=== PATIENT | female | born 1990 | race Asian ===

== ENCOUNTER 2018-10-26 17:21 | Inpatient (IN) ==
[2018-10-26 17:58] LABS: Appearance Urine Cloudy (Clear); Bilirubin Urine Negative (Negative); Blood Urine Negative (Negative); Color Urine Yellow; Epithelial Cell Urine Auto >30 /lpf (0-5); Glucose Urine UA Negative (Negative); Ketones Urine Negative (Negative); Leukocyte Esterase Urine 2+ (Negative); Nitrite Urine Negative (Negative); Protein Urine Negative (Negative); Specific Gravity Urine 1.025 (1.000-1.030); Urobilinogen Urine Negative (Negative); WBC Urine Automated >30 /hpf (0-5)
[2018-10-26 17:59] LABS: Basophils # (auto) 0.02 K/uL (0-0.2); Basophils % (auto) 0.3 %; Eosinophils # (auto) 0.18 K/uL (0-0.5); Hematocrit (blood only) 35.5 % (37-47); Hemoglobin 12.6 g/dL (12.0-16.0); Immature Granulocytes # (auto) 0.01 K/uL (0.00-0.02); Immature Granulocytes % (auto) 0.2 %; Lymphocytes # (auto) 1.68 K/uL (1.2-3.4); Mean Corpuscular Hgb Conc 35.5 g/dL (32-36); Mean Corpuscular Volume 89.2 fL (80-100); Mean Platelet Volume 9.3 fL (7.4-10.4); Monocytes # (auto) 0.39 K/uL (0.11-0.59); Monocytes % (auto) 6.5 %; Neutrophils # (auto) 3.73 K/uL (1.4-6.5); Platelet Count 285 K/uL (130-400); RDW Coefficient of Variation 11.8 % (11.5-14.5); RDW Standard Deviation 38.4 fL (36.4-46.3); Red Blood Count 3.98 M/uL (4.2-5.4); White Blood Count 6.01 K/uL (4.8-10.8)
[2018-10-26 18:16] LABS: Bacteria Urine Automated Negative (Negative); Cast Urine Automated 0 /lpf (0-5)
--- NOTE | 2018-10-26 18:29 | Emergency Department Note ---
Entered by Sherron Grey acting as a scribe for History of Present Illness General Chief complaint: Mental Health Evaluation Stated complaint: MHID Time Seen by Provider: 10/26/18 17:26 Source: patient History of Present Illness Onset (ago): unknown (ongoing over last few years) Location: left and right (generalized) Pain Consistency: + intermittent Quality: + other (hearing voices) Associated symptoms: + denies other symptoms The patient is a 27 year old female who presents to the Emergency Room with complaints of intermittently hearing voices that has been ongoing over the last few years. The patient states she hears the voices more when she is alone. She notes the voices have not told her to harm herself or anyone else. She notes the voices told her to cut her hair and maybe they could get out. She states she cut her hair but they have not left. She reports the voices will speak Vietnamese in [place] and [place] in [place]. The patient notes she has been to the [facility] for 1 week previously. Home Medications Home Medications Medication Instructions Recorded Confirmed Type fexofenadine [Liana Allergy] 180 mg PO DAILY PRN 07/06/18 10/26/18 History psyllium husk [Metamucil] 0.4 g PO DAILY PRN 07/13/18 10/26/18 History amoxicillin-pot clavulanate 1 tab PO BID #20 tab 10/17/18 10/26/18 Rx [Augmentin] Allergies Allergy/AdvReac Type Severity Reaction Status Date / Time No Known Allergies Allergy Verified 10/26/18 17:55 Past Med/Surg History Medical History Tonsil stone Surgical History History of colonoscopy Thyroid nodule BENIGN Social History Preferred Language: Bruneian Beliefs That Will Affect Care: None marital status: Single Current Living Situation Comment: 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 and A total of 10 systems reviewed and were otherwise negative Physical Exam Vital Signs Vital Signs - 24 hr 10/26/18 17:40 10/26/18 19:22 10/26/18 22:16 Temperature 36.7 C Temperature Source Oral Sepsis Recent Fever Within 48 Hours No Sepsis Action Taken by Nursing No Action Required Pulse Rate 70 Pulse Rate [Finger] 84 81 Pulse Rhythm Regular Pulse Strength Normal Respiratory Rate 16 12 14 Respiratory Effort / Characteristics Non-Labored Respiratory Depth Normal Respiratory Pattern Regular Blood Pressure 119/65 Blood Pressure [Left Arm] 109/58 L 113/63 Blood Pressure Mean 83 Blood Pressure Mean [Left Arm] 75 79 Blood Pressure Position Sitting Pulse Oximetry 98 100 98 Oxygen Delivery Method Room Air Room Air Room Air CONSTITUTIONAL/VITAL SIGNS: Reviewed / noted above. GENERAL: Non-toxic in appearance. INTEGUMENTARY: Warm, dry, and [place]. HEAD: Normocephalic. EYES: without scleral icterus or trauma. ENT/OROPHARYNX: clear and moist. LYMPHADENOPATHY/NECK: Is supple without lymphadenopathy or meningismus. RESPIRATORY: Lungs clear and equal. CARDIOVASCULAR: Regular rate and rhythm. GI/ABDOMEN: Soft and nontender. No organomegaly or pulsatile mass. No rebound or guarding. Normal bowel sounds. EXTREMITIES: Warm and well perfused. BACK: No CVA tenderness. NEUROLOGICAL: Intact without focal deficits. PSYCHIATRIC: normal affect. MUSCULOSKELETAL: Normally developed with good muscle tone. PSYCH: Normal affect. Course 1733: Past medical records reviewed. The patient was evaluated in room A7, and a complete history and physical examination were performed. 2030: The patient is medically cleared at this time. Awaiting mental health staff to evaluate the patient. 5: The patient has been accepted to [address] [place] [address]. Medical Decision Making Differential Diagnosis differential includes toxic ingestions, self-mutilation, suicidal ideation, suicide attempt, depression. Medical Records Attestation: I reviewed the patient's medical records. Home Medications Current Medication List: was personally reviewed by me Laboratory Data Attestation: I reviewed the patient's lab results. Result diagrams: 10/26/18 17:44 10/26/18 17:44 Lab Results 10/26/18 10/26/18 10/26/18 Range/Units 17:36 17:36 17:44 WBC 6.01 (4.8-10.8) K/uL RBC 3.98 L (4.2-5.4) M/uL Hgb 12.6 (12.0-16.0) g/dL Hct 35.5 L (37-47) % MCV 89.2 (80-100) fL MCH 31.7 (25-34) pg MCHC 35.5 (32-36) g/dL RDW Std Deviation 38.4 (36.4-46.3) fL RDW Coeff of Cedrick 11.8 (11.5-14.5) % Plt Count 285 (130-400) K/uL MPV 9.3 (7.4-10.4) fL Immature Gran % (Auto) 0.2 % Neut % (Auto) 62.0 % Lymph % (Auto) 28.0 % Cottle % (Auto) 6.5 % Eos % (Auto) 3.0 % Baso % (Auto) 0.3 % Immature Gran # (Auto) 0.01 (0.00-0.02) K/uL Neut # (Auto) 3.73 (1.4-6.5) K/uL Lymph # (Auto) 1.68 (1.2-3.4) K/uL Cottle # (Auto) 0.39 (0.11-0.59) K/uL Eos # (Auto) 0.18 (0-0.5) K/uL Baso # (Auto) 0.02 (0-0.2) K/uL Sodium (136-145) mmol/L Potassium (3.5-5.1) mmol/L Chloride (98-107) mmol/L Carbon Dioxide (21-32) mmol/L Anion Gap (3-11) BUN (7-18) mg/dl Creatinine (0.6-1.2) mg/dl Est Cr Clr Drug Dosing ml/min Est GFR ( Amer) Est GFR (Non-Af Amer) BUN/Creatinine Ratio (10-20) Glucose (70-99) mg/dl Calcium (8.5-10.1) mg/dl Total Bilirubin (0.2-1) mg/dl AST (15-37) U/L ALT (12-78) U/L Alkaline Phosphatase (45-117) U/L Total Protein (6.4-8.2) gm/dl Albumin (3.4-5.0) gm/dl Globulin (2.5-4.0) gm/dl Albumin/Globulin Ratio (0.9-2) TSH (0.300-4.500) uIu/ml HCG, Qual (Negative) Urine Color Yellow Urine Appearance Cloudy H (Clear) Urine pH 5.0 (4.5-7.5) Ur Specific Mcwilliams 1.025 (1.000-1.030) Urine Protein Negative (Negative) Urine Glucose (UA) Negative (Negative) Urine Ketones Negative (Negative) Urine Blood Negative (Negative) Urine Nitrite Negative (Negative) Urine Bilirubin Negative (Negative) Urine Urobilinogen Negative (Negative) Ur Leukocyte Esterase 2+ H (Negative) Urine WBC (Auto) >30 H (0-5) /hpf Urine RBC (Auto) 5-10 H (0-4) /hpf U Hyaline Cast (Auto) 0 (0-5) /lpf U Epithel Cells (Auto) >30 H (0-5) /lpf Urine Bacteria (Auto) Negative (Negative) Ur Renal Epithelial Cell Not Reportable Salicylates (2.8-20) mg/dl Urine Opiates Screen Neg (Neg) Ur Methadone, Qual Neg (Neg) Acetaminophen (10-30) ug/ml Urine Barbiturates Neg (Neg) Ur Phencyclidine (PCP) Neg (Neg) U Amphetamin/Meth Scrn Neg (Neg) MDMA (Ecstasy) Screen Neg (Neg) U Benzodiazepines Scrn Neg (Neg) Ur Cocaine Metabolite Neg (Neg) U Marijuana (THC) Screen Neg (Neg) Ethyl Alcohol mg/dL (0-3) mg/dl 10/26/18 10/26/18 10/26/18 Range/Units 17:44 17:44 17:44 WBC (4.8-10.8) K/uL RBC (4.2-5.4) M/uL Hgb (12.0-16.0) g/dL Hct (37-47) % MCV (80-100) fL MCH (25-34) pg MCHC (32-36) g/dL RDW Std Deviation (36.4-46.3) fL RDW Coeff of Cedrick (11.5-14.5) % Plt Count (130-400) K/uL MPV (7.4-10.4) fL Immature Gran % (Auto) % Neut % (Auto) % Lymph % (Auto) % Cottle % (Auto) % Eos % (Auto) % Baso % (Auto) % Immature Gran # (Auto) (0.00-0.02) K/uL Neut # (Auto) (1.4-6.5) K/uL Lymph # (Auto) (1.2-3.4) K/uL Cottle # (Auto) (0.11-0.59) K/uL Eos # (Auto) (0-0.5) K/uL Baso # (Auto) (0-0.2) K/uL Sodium 139 (136-145) mmol/L Potassium 3.7 (3.5-5.1) mmol/L Chloride 108 H (98-107) mmol/L Carbon Dioxide 24 (21-32) mmol/L Anion Gap 7.0 (3-11) BUN 10 (7-18) mg/dl Creatinine 0.60 (0.6-1.2) mg/dl Est Cr Clr Drug Dosing 101.2 ml/min Est GFR ( Amer) 144.8 Est GFR (Non-Af Amer) 124.9 BUN/Creatinine Ratio 15.9 (10-20) Glucose 88 (70-99) mg/dl Calcium 8.7 (8.5-10.1) mg/dl Total Bilirubin 0.6 (0.2-1) mg/dl AST 12 L (15-37) U/L ALT 16 (12-78) U/L Alkaline Phosphatase 39 L (45-117) U/L Total Protein 7.4 (6.4-8.2) gm/dl Albumin 3.9 (3.4-5.0) gm/dl Globulin 3.5 (2.5-4.0) gm/dl Albumin/Globulin Ratio 1.1 (0.9-2) TSH 2.310 (0.300-4.500) uIu/ml HCG, Qual (Negative) Urine Color Urine Appearance (Clear) Urine pH (4.5-7.5) Ur Specific Mcwilliams (1.000-1.030) Urine Protein (Negative) Urine Glucose (UA) (Negative) Urine Ketones (Negative) Urine Blood (Negative) Urine Nitrite (Negative) Urine Bilirubin (Negative) Urine Urobilinogen (Negative) Ur Leukocyte Esterase (Negative) Urine WBC (Auto) (0-5) /hpf Urine RBC (Auto) (0-4) /hpf U Hyaline Cast (Auto) (0-5) /lpf U Epithel Cells (Auto) (0-5) /lpf Urine Bacteria (Auto) (Negative) Ur Renal Epithelial Cell Salicylates < 1.7 L (2.8-20) mg/dl Urine Opiates Screen (Neg) Ur Methadone, Qual (Neg) Acetaminophen < 2 L (10-30) ug/ml Urine Barbiturates (Neg) Ur Phencyclidine (PCP) (Neg) U Amphetamin/Meth Scrn (Neg) MDMA (Ecstasy) Screen (Neg) U Benzodiazepines Scrn (Neg) Ur Cocaine Metabolite (Neg) U Marijuana (THC) Screen (Neg) Ethyl Alcohol mg/dL < 3.0 (0-3) mg/dl 10/26/18 Range/Units 17:44 WBC (4.8-10.8) K/uL RBC (4.2-5.4) M/uL Hgb (12.0-16.0) g/dL Hct (37-47) % MCV (80-100) fL MCH (25-34) pg MCHC (32-36) g/dL RDW Std Deviation (36.4-46.3) fL RDW Coeff of Cedrick (11.5-14.5) % Plt Count (130-400) K/uL MPV (7.4-10.4) fL Immature Gran % (Auto) % Neut % (Auto) % Lymph % (Auto) % Cottle % (Auto) % Eos % (Auto) % Baso % (Auto) % Immature Gran # (Auto) (0.00-0.02) K/uL Neut # (Auto) (1.4-6.5) K/uL Lymph # (Auto) (1.2-3.4) K/uL Cottle # (Auto) (0.11-0.59) K/uL Eos # (Auto) (0-0.5) K/uL Baso # (Auto) (0-0.2) K/uL Sodium (136-145) mmol/L Potassium (3.5-5.1) mmol/L Chloride (98-107) mmol/L Carbon Dioxide (21-32) mmol/L Anion Gap (3-11) BUN (7-18) mg/dl Creatinine (0.6-1.2) mg/dl Est Cr Clr Drug Dosing ml/min Est GFR ( Amer) Est GFR (Non-Af Amer) BUN/Creatinine Ratio (10-20) Glucose (70-99) mg/dl Calcium (8.5-10.1) mg/dl Total Bilirubin (0.2-1) mg/dl AST (15-37) U/L ALT (12-78) U/L Alkaline Phosphatase (45-117) U/L Total Protein (6.4-8.2) gm/dl Albumin (3.4-5.0) gm/dl Globulin (2.5-4.0) gm/dl Albumin/Globulin Ratio (0.9-2) TSH (0.300-4.500) uIu/ml HCG, Qual Negative (Negative) Urine Color Urine Appearance (Clear) Urine pH (4.5-7.5) Ur Specific Mcwilliams (1.000-1.030) Urine Protein (Negative) Urine Glucose (UA) (Negative) Urine Ketones (Negative) Urine Blood (Negative) Urine Nitrite (Negative) Urine Bilirubin (Negative) Urine Urobilinogen (Negative) Ur Leukocyte Esterase (Negative) Urine WBC (Auto) (0-5) /hpf Urine RBC (Auto) (0-4) /hpf U Hyaline Cast (Auto) (0-5) /lpf U Epithel Cells (Auto) (0-5) /lpf Urine Bacteria (Auto) (Negative) Ur Renal Epithelial Cell Salicylates (2.8-20) mg/dl Urine Opiates Screen (Neg) Ur Methadone, Qual (Neg) Acetaminophen (10-30) ug/ml Urine Barbiturates (Neg) Ur Phencyclidine (PCP) (Neg) U Amphetamin/Meth Scrn (Neg) MDMA (Ecstasy) Screen (Neg) U Benzodiazepines Scrn (Neg) Ur Cocaine Metabolite (Neg) U Marijuana (THC) Screen (Neg) Ethyl Alcohol mg/dL (0-3) mg/dl Blood Pressure Blood Pressure Findings: Normal blood pressure Blood Pressure Disposition: did not require urgent referral MDM Narrative This is a 27-year-old female who presents to the ED with a chief complaint of hearing voices. The patient has been hearing voices for some time. She states that the voices have become more prominent recently. She states that she cut her hair very short about 2 weeks ago because the voices told her that if she cut her hair short that the voices would go out of her head. She has been to the [facility] once in August for the same symptoms. She is not currently taking medication. She denies any fevers or recent illness. Denies any trauma. The patient denies that the voices telling her to harm herself or kill herself. Her CBC and metabolic panel were unremarkable. Urine appears to be contaminated but no clear infection. Denies urinary symptoms. HCG was negative. Alcohol was negative. Tylenol and aspirin are negative. The patient is felt to be medically cleared for mental health evaluation/admission. Admitted to . Impression & Plan Auditory hallucination, Depression Discharge Plan Visit Data Chief Complaint: Mental Health Evaluation Stated Complaint: MHID ED Provider: Keith Mott Discharge Problem: Auditory hallucination, Depression Patient Disposition: Transfer Behavioral Health Fac Forms Stand Alone Forms: [facility] Prescriptions Prescriptions: No Action fexofenadine [Liana Allergy] 180 mg Tablet 180 mg PO DAILY PRN (Reason: Congestion) RF: 0 psyllium husk [Metamucil] 0.4 gram Capsule 0.4 g PO DAILY PRN (Reason: Constipation) RF: 0 amoxicillin-pot clavulanate [Augmentin] 875-125 mg tablet 1 tab PO BID Qty: 20 RF: 0 Referrals Referrals: [facility] [Primary Care Provider] - Discharge Problem: Depression Qualifiers: Depression Type: unspecified Qualified Code(s): F32.9 - Major depressive disorder, single episode, unspecified The scribe's documentation has been prepared under my direction and personally reviewed by me in its entirety. I confirm that the note above accurately reflects all work, treatment, procedures, and medical decision making performed by me.
[2018-10-26 18:32] LABS: Amphetamines+Metham, Urine Neg (Neg); Barbiturates, Urine Neg (Neg); Benzodiazepine, Urine Neg (Neg); Cocaine, Urine Neg (Neg); MDMA (Ecstacy), Urine Neg (Neg); Methadone, Urine Neg (Neg); Opiate, Urine Neg (Neg); Phencyclidine, Urine Neg (Neg)
[2018-10-26 18:33] LABS: Albumin Level 3.9 gm/dl (3.4-5.0); BUN Creatinine Ratio 15.9 (10-20); Calcium 8.7 mg/dl (8.5-10.1); Creatinine Clr Calc Pharmacy 101.2 ml/min; Est GFR (African American) 144.8; Est GFR (Non-African American) 124.9; Potassium 3.7 mmol/L (3.5-5.1)
[2018-10-26 18:36] LABS: Acetaminophen < 2 ug/ml (10-30); Salicylate < 1.7 mg/dl (2.8-20)
[2018-10-26 18:44] LABS: Albumin Globulin Ratio 1.1 (0.9-2); Bilirubin,Total 0.6 mg/dl (0.2-1); Globulin 3.5 gm/dl (2.5-4.0); Total Protein 7.4 gm/dl (6.4-8.2)
[2018-10-26 18:47] LABS: Pregnancy Test, Serum Negative (Negative)
[2018-10-26] MEDS ORDERED: ACETAMINOPHEN 325 MG TAB PO PRN (22:52)
[2018-10-26] MEDS ORDERED: BISMUTH SUBSALICYLATE PER ML OMNICELL CHARGE PO PRN (22:52)
[2018-10-26] MEDS ORDERED: MAGNESIUM HYDROXIDE SUSP 30 ML UDC PO PRN (22:52)
[2018-10-26] MEDS ORDERED: ALUMINUM/MAGNESIUM SUSP 30 ML UDC PO PRN (22:52)
[2018-10-26] MEDS ORDERED: SODIUM CHLORIDE 0.65% NA SOLN 45 ML (OCEAN) PRN (22:52)
[2018-10-27] MEDS ORDERED: PSYLLIUM 58.6% POWDER PACKET PO PRN (00:20)
[2018-10-27] MEDS ORDERED: FEXOFENADINE HCL 180 MG TAB PO PRN (00:21)
[2018-10-27] MEDS ORDERED: risperiDONE ODT 0.5 MG SOLTAB PO PRN (00:22)
[2018-10-27] MEDS ORDERED: LORazepam 1 MG TAB PO PRN (00:23)
--- NOTE | 2018-10-27 12:14 | History & Physical ---
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 She is unsure what medication she was tried on recently at the [facility] but nursing indicates that it was Zyprexa. We will restarted 2.5 mg twice daily titrating as tolerated and obtain baseline labs tomorrow morning. These voices appear to have been going on for several years, she has no insight into them and I suspect that this is the beginning of a primary thought disorder such as schizophrenia. Fortunately, she has been able to function and if she is able to remain focused will graduate with her PhD at the end of summer. We will need to explore what local supports she has, refer for psychiatric aftercare. The voice is intermittently command her to do things and she has followed through on at least one command to cut her hair in order to release the voices and I am concerned that if they talk again about suicide that would release them that she could act out on that. There is a backup 302 petitioner statement and a 302 should be considered in the event she wants to department the hospital prematurely. At this time, the patient requires inpatient mental health treatment due to the severity of her condition, inability to manipulate information in a reality based manner, resulting in a high risk for self-harm if discharged. (1) Auditory hallucination: 10/27 - Start Zyprexa 2.5 mg BID R/B/A reviewed and accepted including risk for TD - Monitoring labs (FLP and FBS) tomorrow AM - Reality orientation - Explore support network - Communicate with the university as needed - Coordinate with [facility] - Q 15 min checks for safety Present on Admission?: Yes (2) Sinusitis: 10/27 - Started a 10 day course of Augmentin 4 days ago for "sinus infections. Will continue Chronicity: acute Recurrence: not specified as recurrent Sinusitis location: unspecified location Qualified Code(s): J01.90 - Acute sinusitis, unspecified Present on Admission?: Yes Inventory Assets Strengths: Intelligence, desire to get better Needs: Reality orientation Risk Factors Assessment Male: No : No Do You Have Access To A Gun?: No Health Problems: No Mental Health Diagnoses: Yes Substance Use Disorders: No Previous Attempt: No Family History of Suicide: No Previous Psychiatric Hospitalization: Yes Hopelessness: No Smoker: No Protective Factors Assessment : No Responsible for Young Children: No Employed: No Psychiatric History Identifying Data DELVIS ESCOBAR is a 27-year-old F from [place], 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 She is admitted voluntarily. Information is gathered from the patient and considered to be reliable. 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 She talked with her family About it at the time, they confirmed that they did not hear voices and she was encouraged to see a physician which she did not. She admits that she has been having trouble hearing multiple voices in her head that are usually arguing, shouting "shut up" and using swear words. She first started to hear these voices about 1 year prior to coming to the [facility], believing that it was her neighbors. She then moved to the [facility] to pursue her PhD at [employer] and since arriving has moved 6 times believing that the voices are her neighbors. She was recently hospitalized at the [facility] for voices, took an unknown named medication but did not take it after discharge on October 13 saying that no prescription was ever sent. She was assigned to follow-up at [facility] on campus and saw Danni yesterday to whom she reported that she has had ongoing problems with voices saying that she should cut off her hair and they will get out of her and to days ago saying to each other that if she committed suicide that may be they would be able to get out. She has been talking with her landlord about this who says that she is "spiritually sensitive" and that is why she is hearing voices. She indicates that the voices speaking Wallisian and some limited Belarusian. Some of the voices say they are cat or dog spirits and the only time the improve is when she is sleeping. She says that she hears them 24 hours a day at this point unless she is sleeping. Today she says that her mood is okay and denies suicidal thinking but even during the interview was saying that she is hearing voices saying that she should zain me for the things that I am asking. She indicates her sleep and appetite have been undisturbed. She has anxiety when she hears the voices saying that she feels "overwhelmed" and that they are "too noisy". She denies ever having had visual experiences. She denies self-injurious behaviors. She denies discrete episodes of euphoric mood, sleeplessness or pleasure seeking behaviors that would be congruent with bipolar disorder. Past Psychiatric History Current Psychiatric Diagnosis: Unknown Outpatient Services: cristopher BER[facility] Danni yesterday Previous Psych Admissions: The [facility] Do You Have Access To A Gun?: No History of Previous Suicide Attempt: No Past Medication Trials: ? Zyprexa while at the [facility] Past Head Trauma/Neuro History History of Concussion/Seizure: No Allergies Allergy/AdvReac Type Severity Reaction Status Date / Time No Known Allergies Allergy Verified 10/26/18 17:55 Home Medications Home Medications Medication Instructions Recorded Confirmed Type fexofenadine [Liana Allergy] 180 mg PO DAILY PRN 07/06/18 10/26/18 History psyllium husk [Metamucil] 0.4 g PO DAILY PRN 07/13/18 10/26/18 History amoxicillin-pot clavulanate 1 tab PO BID #20 tab 10/17/18 10/26/18 Rx [Augmentin] Family History Family History of: None Alcohol History Hx of Alcohol Use Over the Past 12 Months: No AUDIT Total Score: 0 Smoking Use Have You Smoked or Used Tobacco Products in the Last 30 Days: No Smoking Status: Never smoker Substance History Hx of Prescription Med Misuse Over the Past 12 Months: No Hx of Over the Counter Med Misuse Over the Past 12 Months: No Hx of Inhalent Misuse Over the Past 12 Months: No Hx of Organic Substance Use Over the Past 12 Months: No Hx of Illegal Substances/Street Drug Use Over Past 12 Months: No Problems as a Result of Past Substance Use: None Identified Personal History Living Arrangements: [employer] Grade Completed Comment: 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 the end 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 Employment Status: Student Marital Status: Single Number Of Children: None Beliefs That Will Affect Care: None Current Legal Problems: No Hx Legal Problems: No Hx Traumatic Life Events: No Patient History Medical History Tonsil stone Surgical History History of colonoscopy Thyroid nodule BENIGN Social History Preferred Language: Wallisian Communication Ability: Effective 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 Mott in the ED has been reviewed and accepted as medical clearance for our unit. Psychiatric Orientation: alert, oriented x 3 and cooperative Apperance: appropriately dressed and appropriately groomed (Recently shaved head) Eye Contact: good eye contact Motor Behavior: steady gait and station and no abnormal motor movements Speech: normal rate/rhythm/volume of speech (quiet with heavy accent) Affect: + anxious affect Mood: + anxious mood; no depressed mood Thought Process: goal directed thought process Thought Content: + preoccupation (with auditory hallucinations) Suicidal Thoughts: denies suicidal thoughts Homicidal Thoughts: denies homicidal thoughts Hallucinations: + auditory hallucinations; no visual hallucinations Cognition: recent memory grossly intact, remote memory grossly intact, attention grossly intact and language grossly intact Estimated Intelligence: average estimated intelligence Insight: + impaired insight Judgement: + impaired judgement Vital Signs (Past 24 Hours) Last Vital Signs Temp 36.6 C 10/27/18 06:49 Pulse 82 10/27/18 06:50 Resp 16 10/27/18 06:49 BP 107/73 10/27/18 06:50 Pulse Ox 100 10/26/18 23:05 Results & Data Laboratory Results Laboratory Results - last 24 hr 10/26/18 10/26/18 10/26/18 17:36 17:36 17:44 WBC 6.01 RBC 3.98 L Hgb 12.6 Hct 35.5 L MCV 89.2 MCH 31.7 MCHC 35.5 RDW Std Deviation 38.4 RDW Coeff of Cedrick 11.8 Plt Count 285 MPV 9.3 Immature Gran % (Auto) 0.2 Neut % (Auto) 62.0 Lymph % (Auto) 28.0 Allen % (Auto) 6.5 Eos % (Auto) 3.0 Baso % (Auto) 0.3 Immature Gran # (Auto) 0.01 Neut # (Auto) 3.73 Lymph # (Auto) 1.68 Allen # (Auto) 0.39 Eos # (Auto) 0.18 Baso # (Auto) 0.02 Sodium Potassium Chloride Carbon Dioxide Anion Gap BUN Creatinine Est Cr Clr Drug Dosing Est GFR ( Amer) Est GFR (Non-Af Amer) BUN/Creatinine Ratio Glucose Calcium Total Bilirubin AST ALT Alkaline Phosphatase Total Protein Albumin Globulin Albumin/Globulin Ratio TSH HCG, Qual Urine Color Yellow Urine Appearance Cloudy H Urine pH 5.0 Ur Specific Slovan 1.025 Urine Protein Negative Urine Glucose (UA) Negative Urine Ketones Negative Urine Blood Negative Urine Nitrite Negative Urine Bilirubin Negative Urine Urobilinogen Negative Ur Leukocyte Esterase 2+ H Urine WBC (Auto) >30 H Urine RBC (Auto) 5-10 H U Hyaline Cast (Auto) 0 U Epithel Cells (Auto) >30 H Urine Bacteria (Auto) Negative Ur Renal Epithelial Cell Not Reportable Salicylates Urine Opiates Screen Neg Ur Methadone, Qual Neg Acetaminophen Urine Barbiturates Neg Ur Phencyclidine (PCP) Neg U Amphetamin/Meth Scrn Neg MDMA (Ecstasy) Screen Neg U Benzodiazepines Scrn Neg Ur Cocaine Metabolite Neg U Marijuana (THC) Screen Neg Ethyl Alcohol mg/dL 10/26/18 10/26/18 10/26/18 17:44 17:44 17:44 WBC RBC Hgb Hct MCV MCH MCHC RDW Std Deviation RDW Coeff of Cedrick Plt Count MPV Immature Gran % (Auto) Neut % (Auto) Lymph % (Auto) Allen % (Auto) Eos % (Auto) Baso % (Auto) Immature Gran # (Auto) Neut # (Auto) Lymph # (Auto) Allen # (Auto) Eos # (Auto) Baso # (Auto) Sodium 139 Potassium 3.7 Chloride 108 H Carbon Dioxide 24 Anion Gap 7.0 BUN 10 Creatinine 0.60 Est Cr Clr Drug Dosing 101.2 Est GFR ( Amer) 144.8 Est GFR (Non-Af Amer) 124.9 BUN/Creatinine Ratio 15.9 Glucose 88 Calcium 8.7 Total Bilirubin 0.6 AST 12 L ALT 16 Alkaline Phosphatase 39 L Total Protein 7.4 Albumin 3.9 Globulin 3.5 Albumin/Globulin Ratio 1.1 TSH 2.310 HCG, Qual Urine Color Urine Appearance Urine pH Ur Specific Slovan Urine Protein Urine Glucose (UA) Urine Ketones Urine Blood Urine Nitrite Urine Bilirubin Urine Urobilinogen Ur Leukocyte Esterase Urine WBC (Auto) Urine RBC (Auto) U Hyaline Cast (Auto) U Epithel Cells (Auto) Urine Bacteria (Auto) Ur Renal Epithelial Cell Salicylates < 1.7 L Urine Opiates Screen Ur Methadone, Qual Acetaminophen < 2 L Urine Barbiturates Ur Phencyclidine (PCP) U Amphetamin/Meth Scrn MDMA (Ecstasy) Screen U Benzodiazepines Scrn Ur Cocaine Metabolite U Marijuana (THC) Screen Ethyl Alcohol mg/dL < 3.0 10/26/18 17:44 WBC RBC Hgb Hct MCV MCH MCHC RDW Std Deviation RDW Coeff of Cedrick Plt Count MPV Immature Gran % (Auto) Neut % (Auto) Lymph % (Auto) Allen % (Auto) Eos % (Auto) Baso % (Auto) Immature Gran # (Auto) Neut # (Auto) Lymph # (Auto) Allen # (Auto) Eos # (Auto) Baso # (Auto) Sodium Potassium Chloride Carbon Dioxide Anion Gap BUN Creatinine Est Cr Clr Drug Dosing Est GFR ( Amer) Est GFR (Non-Af Amer) BUN/Creatinine Ratio Glucose Calcium Total Bilirubin AST ALT Alkaline Phosphatase Total Protein Albumin Globulin Albumin/Globulin Ratio TSH HCG, Qual Negative Urine Color Urine Appearance Urine pH Ur Specific Slovan Urine Protein Urine Glucose (UA) Urine Ketones Urine Blood Urine Nitrite Urine Bilirubin Urine Urobilinogen Ur Leukocyte Esterase Urine WBC (Auto) Urine RBC (Auto) U Hyaline Cast (Auto) U Epithel Cells (Auto) Urine Bacteria (Auto) Ur Renal Epithelial Cell Salicylates Urine Opiates Screen Ur Methadone, Qual Acetaminophen Urine Barbiturates Ur Phencyclidine (PCP) U Amphetamin/Meth Scrn MDMA (Ecstasy) Screen U Benzodiazepines Scrn Ur Cocaine Metabolite U Marijuana (THC) Screen Ethyl Alcohol mg/dL Current Inpatient Medications Current Inpatient Medications: Current Inpatient Medications Acetaminophen (Tylenol) 650 mg PO Q4H PRN PRN Reason: Headache or Minor Fever Stop: 11/25/18 22:51 Al Hydrox/Mg Hydrox/Simethicone (Maalox) 30 ml PO Q4H PRN PRN Reason: GI Upset Stop: 11/25/18 22:51 Bismuth Subsalicylate (Kaopectate) 15 ml PO PRN PRN PRN Reason: Loose Stool Stop: 11/25/18 22:51 Fexofenadine HCl (Liana) 180 mg PO QAM PRN PRN Reason: Congestion Stop: 11/26/18 08:59 Hydroxyzine HCl (Vistaril) 25 mg PO Q4H PRN PRN Reason: Anxiety Stop: 11/25/18 22:51 Hydroxyzine HCl (Vistaril) 50 mg PO HSZ PRN PRN Reason: Insomnia Stop: 11/25/18 22:51 Lorazepam (Ativan) 1 mg PO TID PRN PRN Reason: Anxiety Stop: 11/26/18 00:22 Magnesium Hydroxide (Milk Of Magnesia) 30 ml PO DAILY PRN PRN Reason: Heartburn Stop: 11/25/18 22:51 Psyllium Hydrophilic Mucilloid (Metamucil) 1 pkt PO QAM PRN PRN Reason: Constipation Stop: 11/26/18 08:59 Risperidone (Risperdal M) 0.5 mg PO TID PRN PRN Reason: psychosis Stop: 11/26/18 00:21 Sodium Chloride ([place] Nasal) 1 - 2 sprays NA PRN PRN PRN Reason: Nasal Dryness/Congestion Stop: 11/25/18 22:51 CPT Code CPT Code Initial Hospital Care: [id number]
[2018-10-27] MEDS: OLANZAPINE 2.5 MG TAB PO SCH ×2 (12:47→21:10)
[2018-10-27] MEDS: NON-FORMULARY PATIENT'S OWN MED SCH (18:17)
[2018-10-28 07:46] LABS: Glucose Fasting 91 mg/dl (70-99)
[2018-10-28 07:53] LABS: Chol HDL Ratio 2; Cholesterol 154 mg/dl (0-200); HDL Cholesterol 66 mg/dl; LDL Cholesterol Calculated 80 mg/dl; Triglycerides 40 mg/dl (0-150); VLDL Cholesterol 8 mg/dl
[2018-10-28] MEDS: OLANZAPINE 2.5 MG TAB PO SCH ×2 (09:15→21:08)
[2018-10-28] MEDS: NON-FORMULARY PATIENT'S OWN MED SCH ×2 (09:16→17:32)
--- NOTE | 2018-10-28 10:55 | Psychiatric Progress Note ---
Date of Service October 28, 2018 Impression / Recommendations Impression Adjusting to the structure and support of the milieu. Continues with auditory hallucinations of multiple voices arguing, but are more distant and less intense. Is sedated on the meds and so will not increase and will consider moving all to HS if persists. Will switch prn to Zyprexa for monotherapy. Patient agreeable to having a meeting with her roommates. (1) Auditory hallucination: 10/27 - Start Zyprexa 2.5 mg BID R/B/A reviewed and accepted including risk for TD - Monitoring labs (FLP and FBS) tomorrow AM - Reality orientation - Explore support network - Communicate with the university as needed - Coordinate with [facility] - Q 15 min checks for safety 10/28 - Continue current dose of zyprexa - Change prn to zyprexa 2.5 TID prn psychosis - Meeting with roommates when patient able to tolerate Present on Admission?: Yes (2) Sinusitis: 10/27 - Started a 10 day course of Augmentin 4 days ago for "sinus infections. Will continue Present on Admission?: Yes Inventory Assets Strengths: Intelligence, desire to get better Needs: Reality orientation Risk Factors Assessment Male: No : No Do You Have Access To A Gun?: No Health Problems: No Mental Health Diagnoses: Yes Substance Use Disorders: No Previous Attempt: No Family History of Suicide: No Previous Psychiatric Hospitalization: Yes Hopelessness: No Smoker: No Protective Factors Assessment : No Responsible for Young Children: No Employed: No Interval History Identifying Information 27 yo grad student, admitted voluntarily with auditory hallucinations interfering with her ability to function. Chief Complaint "A little farther away.". Review of Systems Sleep Information Total Hours of Sleep: 11 Sleep Comments: pt appeared to sleep 4 hrs during evening shift. pt on q-15 minute checks Meal Information Percent Meal Consumed - Breakfast: 100 Percent Meal Consumed - Lunch: 100 Subjective Subjective Patient was seen & assessed and interval progress reviewed with Treatment Team. The patient is tired today and wants to rest. She says that she still hears the voices but that they are "father away" and "less". She denies any concerns for her safety and says that she is not having visual hallucinations. She denies side effects to meds other than feeling tired. Nursing reports that she took one prn dose of risperdal yesterday because the voices were bad and took both scheduled doses of zyprexa. She is otherwise not very talkative today and is nonspontaneous in conversation. Physical Exam Psychiatric Orientation: cooperative Apperance: appropriately dressed Eye Contact: good eye contact Motor Behavior: steady gait and station and no abnormal motor movements Very quiet and difficult to understand today. Nonspontaneous Affect: + flat affect Mood: no depressed mood and no anxious mood Thought Process: goal directed thought process Thought Content: + preoccupation (with auditory hallucinations) Suicidal Thoughts: denies suicidal thoughts Homicidal Thoughts: denies homicidal thoughts Hallucinations: + auditory hallucinations; no visual hallucinations Cognition: recent memory grossly intact, remote memory grossly intact, attention grossly intact and language grossly intact (heavy accent) Insight: + impaired insight Judgement: + impaired judgement Vital Signs (Past 24 Hours) Last Vital Signs Temp 36.6 C 10/28/18 06:46 Pulse 78 10/28/18 06:46 Resp 16 10/28/18 06:46 BP 114/74 10/28/18 06:46 Pulse Ox 100 10/26/18 23:05 Results & Data Laboratory Results Laboratory Results - last 24 hr 10/28/18 07:00 Fasting Glucose 91 Triglycerides 40 Cholesterol 154 LDL Cholesterol, Calc 80 VLDL Cholesterol, Calc 8 HDL Cholesterol 66 Cholesterol/HDL Ratio 2 Current Inpatient Medications Current Inpatient Medications: Current Inpatient Medications Acetaminophen (Tylenol) 650 mg PO Q4H PRN PRN Reason: Headache or Minor Fever Stop: 11/25/18 22:51 Al Hydrox/Mg Hydrox/Simethicone (Maalox) 30 ml PO Q4H PRN PRN Reason: GI Upset Stop: 11/25/18 22:51 Bismuth Subsalicylate (Kaopectate) 15 ml PO PRN PRN PRN Reason: Loose Stool Stop: 11/25/18 22:51 Fexofenadine HCl (Liana) 180 mg PO QAM PRN PRN Reason: Congestion Stop: 11/26/18 08:59 Hydroxyzine HCl (Vistaril) 25 mg PO Q4H PRN PRN Reason: Anxiety Stop: 11/25/18 22:51 Hydroxyzine HCl (Vistaril) 50 mg PO HSZ PRN PRN Reason: Insomnia Stop: 11/25/18 22:51 Lorazepam (Ativan) 1 mg PO TID PRN PRN Reason: Anxiety Stop: 11/26/18 00:22 Magnesium Hydroxide (Milk Of Magnesia) 30 ml PO DAILY PRN PRN Reason: Heartburn Stop: 11/25/18 22:51 Non-Formulary Medication (Non-Formulary Patient's Own Med) 1 ea N/A BIDM MAEVE Stop: 11/04/18 17:44 Last Admin: 10/28/18 09:16 Dose: 1 ea Documented by: Olanzapine (Zyprexa) 2.5 mg PO BID MAEVE Stop: 11/26/18 12:29 Last Admin: 10/28/18 09:15 Dose: 2.5 mg Documented by: Psyllium Hydrophilic Mucilloid (Metamucil) 1 pkt PO QAM PRN PRN Reason: Constipation Stop: 11/26/18 08:59 Risperidone (Risperdal M) 0.5 mg PO TID PRN PRN Reason: psychosis Stop: 11/26/18 00:21 Last Admin: 10/27/18 21:26 Dose: 0.5 mg Documented by: Sodium Chloride ([place] Nasal) 1 - 2 sprays NA PRN PRN PRN Reason: Nasal Dryness/Congestion Stop: 11/25/18 22:51 Post Discharge Appointments [facility] Name of Therapist: Danni berger [facility] (just there yesterday) Material Expeditor Name of Material Expeditor: Denies CPT Code CPT Code 13425 (1) Sinusitis Chronicity: acute Recurrence: not specified as recurrent Sinusitis location: unspecified location Qualified Code(s): J01.90 - Acute sinusitis, unspecified
[2018-10-28] MEDS ORDERED: OLANZAPINE 2.5 MG TAB PO PRN (10:56)
[2018-10-28] MEDS ORDERED: IBUPROFEN 600 MG TAB PO PRN (13:30)
--- NOTE | 2018-10-29 09:12 | Psychiatric Progress Note ---
Date of Service October 29, 2018 Impression / Recommendations Impression Continues with auditory hallucinations of multiple voices arguing, but are more distant and less intense. Is getting 5 mg of olanzapine total daily in divided doses. Unclear if sleepiness is due to starting her period yesterday (states she typically retreats to bed for a couple of days at the beginning of her cycle), or to sedation from medication, but could continue consolidating olanzapine to bedtime if it continues. She has not yet been able to participate in therapy or groups, and encouraged her to come out of her room and engage more. Inpatient treatment remains medically necessary due to the severity of her symptoms and inability to function outside of the hospital. (1) Auditory hallucination: 10/27 - Start Zyprexa 2.5 mg BID R/B/A reviewed and accepted including risk for TD - Monitoring labs (FLP and FBS) tomorrow AM - Reality orientation - Explore support network - Communicate with the university as needed - Coordinate with CAPS - Q 15 min checks for safety 10/28 - Continue current dose of zyprexa - Change prn to zyprexa 2.5 TID prn psychosis - Meeting with roommates when patient able to tolerate 10/29 -Getting olanzapine 2.5 mg x2 doses a day. Consider consolidating to bedtime if continues to be sleepy during the day. -Encourage group attendance and participation. (2) Sinusitis: 10/27 - Started a 10 day course of Augmentin 4 days ago for sinus infection. 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 Chief Complaint "I got my period." Review of Systems Sleep Information Total Hours of Sleep: 8.25 Sleep Comments: pt appeared to sleep 1/75 hrs during evening shift. pt on q-15 minute checks Meal Information Percent Meal Consumed - Breakfast: 100 Percent Meal Consumed - Lunch: 0 Percent Meal Consumed - Dinner: 100 Nutrition Comment: Patient threw-up earlier in the shift and declined her lunch. Subjective Subjective Patient was seen & assessed and interval progress reviewed with Nursing and social work. Staff reports she has attended minimal groups since admission, often retreating to her bed and sleeping throughout the day. She continues to endorse auditory hallucinations of voices making negative comments. She had an episode of emesis yesterday, and did not attend any groups. She has received he r scheduled olanzapine 2.5 mg daily, as well as an additional daily as needed dose. On my assessment today, the patient was seen in her room, where she was resting in bed. She states that she has been in bed the past 24 hours because she just got her period yesterday, which causes cramping, fatigue, and at times vomiting. She typically retreats to bed for a couple of days every month when she gets her period, but hopes she will feel better by this afternoon and will be able to get up. She does not typically take anything for the cramps, and declines offers for ibuprofen or Tylenol. She has been able to eat and denies any further episodes of nausea or vomiting. She slept well overnight, but continues to feel tired and would like to sleep a bit more. Mood is "I feel calm," and she reports ongoing auditory hallucinations of voices. They are quieter than they were when she first came to the hospital, and are no longer commanding her to do things, but are arguing with each other. Although she says the voices make her feel "annoyed," she gets worried when they stopped and she does not hear them at all, saying she feels "unsafe, I don't know, kind of feel unreal, like I don't know what is happening." She does think the medication is helping, and thinks that she would be able to function better if the voices would go away. She feels safe here and denies thoughts of harming herself or anyone else. She wants to know how long she will be in the hospital, and was encouraged to start coming out of her room and engaging in treatment so that we can have a better sense of how she is doing and her ability to function. Physical Exam Mental Examination Thin female appearing younger than her stated age. Head is shaved in a buzz cut. Lying in bed resting, but easily aroused to voice. Speech is soft, minimal, has to be asked to repeat statements at times as she is so quiet. Limited eye contact and no abnormal movements. Mood is "I feel calm," and affect is restricted to sleepy. Thoughts are goal-directed, although at times difficult to understand, but able to clarify when asked. Denies SI and HI, but reports ongoing auditory hallucinations of voices arguing with one another, as well as paranoia and a feeling unsafe when the voices are quiet. Alert to self and situation, but not to time. Insight and judgment are impaired. Vital Signs (Past 24 Hours) Last Vital Signs Temp 36.6 C 10/29/18 06:42 Pulse 101 H 10/29/18 06:42 Resp 16 10/29/18 06:42 BP 104/70 10/29/18 06:42 Pulse Ox 100 10/26/18 23:05 Results & Data Current Inpatient Medications Current Inpatient Medications: Current Inpatient Medications Acetaminophen (Tylenol) 650 mg PO Q4H PRN PRN Reason: Headache or Minor Fever Stop: 11/25/18 22:51 Al Hydrox/Mg Hydrox/Simethicone (Maalox) 30 ml PO Q4H PRN PRN Reason: GI Upset Stop: 11/25/18 22:51 Bismuth Subsalicylate (Kaopectate) 15 ml PO PRN PRN PRN Reason: Loose Stool Stop: 11/25/18 22:51 Fexofenadine HCl (Liana) 180 mg PO QAM PRN PRN Reason: Congestion Stop: 11/26/18 08:59 Hydroxyzine HCl (Vistaril) 25 mg PO Q4H PRN PRN Reason: Anxiety Stop: 11/25/18 22:51 Hydroxyzine HCl (Vistaril) 50 mg PO HSZ PRN PRN Reason: Insomnia Stop: 11/25/18 22:51 Ibuprofen (Motrin) 600 mg PO Q6H PRN PRN Reason: pain, cramps Stop: 11/27/18 13:29 Lorazepam (Ativan) 1 mg PO TID PRN PRN Reason: Anxiety Stop: 11/26/18 00:22 Magnesium Hydroxide (Milk Of Magnesia) 30 ml PO DAILY PRN PRN Reason: Heartburn Stop: 11/25/18 22:51 Non-Formulary Medication (Non-Formulary Patient's Own Med) 1 ea N/A BIDM MAEVE Stop: 11/04/18 17:44 Last Admin: 10/28/18 17:32 Dose: 1 ea Documented by: Olanzapine (Zyprexa) 2.5 mg PO BID MAEVE Stop: 11/26/18 12:29 Last Admin: 10/28/18 21:08 Dose: 2.5 mg Documented by: Olanzapine (Zyprexa) 2.5 mg PO TID PRN PRN Reason: psychosis Stop: 11/27/18 13:59 Psyllium Hydrophilic Mucilloid (Metamucil) 1 pkt PO QAM PRN PRN Reason: Constipation Stop: 11/26/18 08:59 Sodium Chloride ([place] Nasal) 1 - 2 sprays NA PRN PRN PRN Reason: Nasal Dryness/Congestion Stop: 11/25/18 22:51 Post Discharge Appointments [facility] Name of Therapist: Danni berger [facility] (just there yesterday) Reel And Rewinder Operator Name of Reel And Rewinder Operator: Denies CPT Code CPT Code 88574 (1) Sinusitis Chronicity: acute Recurrence: not specified as recurrent Sinusitis location: unspecified location Qualified Code(s): J01.90 - Acute sinusitis, unspecified
[2018-10-29] MEDS: NON-FORMULARY PATIENT'S OWN MED SCH ×2 (09:21→17:33)
[2018-10-29] MEDS: OLANZAPINE 2.5 MG TAB PO SCH ×2 (09:22→21:22)
--- NOTE | 2018-10-30 10:14 | Psychiatric Progress Note ---
Date of Service October 30, 2018 Impression / Recommendations Impression Auditory hallucinations ongoing, reporting they have become less powerful. Pt reports desire to return to risperidone, previous prescribed prn for hallucinations. Pt provides reasoning that she felt the prns better addressed her hallucinations. Options discussed included switching to risperidone versus further titration of olanzapine to better target hallucinations. Pt inquired about using both medications, and explanation was provided as to recommendation to manage symptoms with one atypical agent if possible. Pt asked appropriate questions and continued to verbalize a desire to switch to risperidone. Risks and benefits were reviewed and patient verbalized understanding. Will schedule risperidone 1mg BID and discontinue olanzapine at this time. She has started to participate somewhat in therapy or groups, and continues to be encouraged her to come out of her room and engage more. Inpatient treatment remains medically necessary due to the severity of her symptoms and inability to function outside of the hospital. (1) Auditory hallucination: 10/27 - Start Zyprexa 2.5 mg BID R/B/A reviewed and accepted including risk for TD - Monitoring labs (FLP and FBS) tomorrow AM - Reality orientation - Explore support network - Communicate with the university as needed - Coordinate with CAPS - Q 15 min checks for safety 10/28 - Continue current dose of zyprexa - Change prn to zyprexa 2.5 TID prn psychosis - Meeting with roommates when patient able to tolerate 10/29 -Getting olanzapine 2.5 mg x2 doses a day. Consider consolidating to bedtime if continues to be sleepy during the day. -Encourage group attendance and participation. 10/30 - Verbalized desire to switch to risperidone; will schedule 1 mg PO BID with 0.5mg q6h prn hallucinations - Continue to encourage participation in groups - Likely unable to tolerate family meeting at this time (2) Sinusitis: 10/27 - Started a 10 day course of Augmentin 4 days ago for sinus infection. 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 Chief Complaint "Um, ok". Review of Systems Notes Constitutional: reports fatigue Cardiovascular: denied Respiratory: denied Gastrointestinal: reports abdominal discomfort, likely related to menses Neurological: denied Psychiatric: denies symptoms other than stated above Total of at least 10 systems reviewed, pertinent positives as above and in HPI. Sleep Information Total Hours of Sleep: 6.5 Sleep Comments: pt on q-15 minute checks Meal Information Percent Meal Consumed - Breakfast: 100 Percent Meal Consumed - Lunch: 100 Percent Meal Consumed - Dinner: 100 Nutrition Comment: Patient threw-up earlier in the shift and declined her lunch. Subjective Subjective Patient was seen & assessed and interval progress reviewed with Treatment Team. Staff reports patient has been retreating to her room more frequently, admittedly due to physical discomfort related to menses. Pt rated her mood a 5/10 with desire to "focus on getting better." Pt was seen today to assess progress since admission. She states she has been doing well, but continues to feel tired. Pt pulls out a post-it with the medication names "Zyprexa" and "Risperdal" written on it. Pt states a desire to convert her medication to risperidone due to "I think it worked better." Early in her stay, patient had prn risperidone ordered and felt that this medication "made the voices stop sooner, I think." We reviewed all of her options, which including switching medications or the possibility of titrating olanzapine. She continues to verbalize a feeling that her hallucinations were better managed on risperidone and would like to switch to this medication. She states her hallucinations are reduced but still present. Physical Exam Psychiatric Orientation: alert, oriented x 3 and cooperative Apperance: appropriately dressed and appropriately groomed (Recently shaved head) Eye Contact: good eye contact Motor Behavior: steady gait and station and no abnormal motor movements Speech: normal rate/rhythm/volume of speech (quiet with heavy accent) Affect: + anxious affect and + flat affect Mood: no depressed mood and no anxious mood "Um, ok" Thought Process: goal directed thought process (assertive and rational about medication changes) Thought Content: + preoccupation (with auditory hallucinations) Suicidal Thoughts: denies suicidal thoughts Homicidal Thoughts: denies homicidal thoughts Hallucinations: + auditory hallucinations (ongoing, but improved); no visual hallucinations Cognition: recent memory grossly intact, remote memory grossly intact, attention grossly intact and language grossly intact (heavy accent) Estimated Intelligence: average estimated intelligence Insight: + impaired insight Judgement: + impaired judgement Vital Signs (Past 24 Hours) Last Vital Signs Temp 36.5 C 10/30/18 06:42 Pulse 75 10/30/18 06:43 Resp 16 10/30/18 06:42 BP 109/73 10/30/18 06:43 Pulse Ox 100 10/26/18 23:05 Results & Data Current Inpatient Medications Current Inpatient Medications: Current Inpatient Medications Acetaminophen (Tylenol) 650 mg PO Q4H PRN PRN Reason: Headache or Minor Fever Stop: 11/25/18 22:51 Al Hydrox/Mg Hydrox/Simethicone (Maalox) 30 ml PO Q4H PRN PRN Reason: GI Upset Stop: 11/25/18 22:51 Bismuth Subsalicylate (Kaopectate) 15 ml PO PRN PRN PRN Reason: Loose Stool Stop: 11/25/18 22:51 Fexofenadine HCl (Liana) 180 mg PO QAM PRN PRN Reason: Congestion Stop: 11/26/18 08:59 Hydroxyzine HCl (Vistaril) 25 mg PO Q4H PRN PRN Reason: Anxiety Stop: 11/25/18 22:51 Hydroxyzine HCl (Vistaril) 50 mg PO HSZ PRN PRN Reason: Insomnia Stop: 11/25/18 22:51 Ibuprofen (Motrin) 600 mg PO Q6H PRN PRN Reason: pain, cramps Stop: 11/27/18 13:29 Lorazepam (Ativan) 1 mg PO TID PRN PRN Reason: Anxiety Stop: 11/26/18 00:22 Magnesium Hydroxide (Milk Of Magnesia) 30 ml PO DAILY PRN PRN Reason: Heartburn Stop: 11/25/18 22:51 Non-Formulary Medication (Non-Formulary Patient's Own Med) 1 ea N/A BIDM MAEVE Stop: 11/04/18 17:44 Last Admin: 10/29/18 17:33 Dose: 1 ea Documented by: Olanzapine (Zyprexa) 2.5 mg PO BID MAEVE Stop: 11/26/18 12:29 Last Admin: 10/29/18 21:22 Dose: 2.5 mg Documented by: Olanzapine (Zyprexa) 2.5 mg PO TID PRN PRN Reason: psychosis Stop: 11/27/18 13:59 Psyllium Hydrophilic Mucilloid (Metamucil) 1 pkt PO QAM PRN PRN Reason: Constipation Stop: 11/26/18 08:59 Sodium Chloride ([place] Nasal) 1 - 2 sprays NA PRN PRN PRN Reason: Nasal Dryness/Congestion Stop: 11/25/18 22:51 Post Discharge Appointments [facility] The[facility]ist Name of Therapist: Danni berger [facility] (just there yesterday) Photographer Assistant Name of Photographer Assistant: Tamia CPT Code CPT Code 44404 (1) Sinusitis Chronicity: acute Recurrence: not specified as recurrent Sinusitis location: unspecified location Qualified Code(s): J01.90 - Acute sinusitis, unspecified
[2018-10-30] MEDS: OLANZAPINE 2.5 MG TAB PO SCH (10:32)
[2018-10-30] MEDS: NON-FORMULARY PATIENT'S OWN MED SCH ×2 (10:33→17:33)
--- NOTE | 2018-10-30 15:24 | Communication Note ---
Date of Service: October 30, 2018 I personally met with the patient today in order to assess her current mental status, evaluate her response to treatment, and review the current treatment plan. Initially, the patient was somewhat withdrawn, but eventually she became more verbal and spontaneously communicative. Her thought processes demonstrated tight associations, and she was able to talk about the fact that she had previously thought that she could handle her own problems independently, simply through willpower and independent efforts. She is now acknowledging that she realizes that this was a mistake and that she does need help in order to stay well. Most specifically, she says that her assumption that she could probably just stay in remission without continuing psychiatric medications was mistaken and she is now aware that she is going to need to continue psychiatric medications in order to recovery and sustain her recovery. Today, there was no evidence of any delusional material and the patient's thought content. She reports that she is continues to experience occasional auditory hallucinations, but also indicates that these have become less intrusive and less frequent. The patient reports that she is not having any current suicidal or homicidal ideations. I am in agreement with her current treatment plan. She expresses a willingness to remain in the hospital as she continues to recover. The plan is to continue her current psychiatric medications, titrate as necessary, and continue to provide individual, group, activity and milieu therapies.
[2018-10-30] MEDS ORDERED: risperiDONE 0.5 MG TABLET PO PRN (16:23)
[2018-10-30] MEDS: risperiDONE 1 MG TABLET PO SCH (21:05)
--- NOTE | 2018-10-31 07:53 | Psychiatric Progress Note ---
Date of Service October 31, 2018 Impression / Recommendations Impression Auditory hallucinations ongoing, similar response to olanzapine according to patient - risperidone may be mildly more effective according to her reports. Given daytime sedation and auditory hallucinations still being present - patient was agreeable to increasing her dose of risperidone while also consolidating the majority of the dose to HS. Will schedule risperidone 0.5mg qAM and 2mg qHS. Has been engaging a bit more with others in the milieu. Inpatient treatment remains medically necessary due to the severity of her symptoms and inability to function outside of the hospital. Pt's urine culture grew maggi albicans - review of urinalysis shows likely contaminated specimen. Pt denies symptoms related to yeast infection, suggest ongoing monitoring of development of symptoms to determine if treatment is indicated. (1) Auditory hallucination: 10/27 - Start Zyprexa 2.5 mg BID R/B/A reviewed and accepted including risk for TD - Monitoring labs (FLP and FBS) tomorrow AM - Reality orientation - Explore support network - Communicate with the university as needed - Coordinate with CAPS - Q 15 min checks for safety 10/28 - Continue current dose of zyprexa - Change prn to zyprexa 2.5 TID prn psychosis - Meeting with roommates when patient able to tolerate 10/29 -Getting olanzapine 2.5 mg x2 doses a day. Consider consolidating to bedtime if continues to be sleepy during the day. -Encourage group attendance and participation. 10/30 - Verbalized desire to switch to risperidone; will schedule 1 mg PO BID with 0.5mg q6h prn hallucinations - Continue to encourage participation in groups - Likely unable to tolerate family meeting at this time 10/31 - Risperidone dosing changed to 0.5mg qAM and 2mg qHS - to target ongoing AH and daytime sedation - Pt verbalizing desire for family meeting, seems appropriate for one to be scheduled (2) Sinusitis: 10/27 - Started a 10 day course of Augmentin 4 days ago for sinus infection. 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 Chief Complaint "[]". Review of Systems Notes Constitutional: reports fatigue Cardiovascular: denied Respiratory: denied Gastrointestinal: denied Neurological: denied Psychiatric: denies symptoms other than stated above Total of at least 10 systems reviewed, pertinent positives as above and in HPI. Sleep Information Total Hours of Sleep: 6 Sleep Comments: pt on q-15 minute checks Meal Information Percent Meal Consumed - Breakfast: 40 Percent Meal Consumed - Lunch: 50 Percent Meal Consumed - Dinner: 60 Nutrition Comment: Patient threw-up earlier in the shift and declined her lunch. Subjective Subjective Patient was seen & assessed and interval progress reviewed with Nursing. Staff report the patient has verbalized desire to schedule a family meeting with her mother. She has been increasingly interactive in the milieu. Pt was seen today to assess progress since admission. Pt states she tolerated the switch to risperidone and denies any side effects. Pt admits that daytime sedation is ongoing, and is agreeable to dose changes to improve this. Pt states "it's about the same, probably this one is better" - when comparing her response to olanzapine or risperidone. She admits to ongoing auditory hallucinations, but is less able to make out themes of the conversations - "I don't think they are talking about me anymore, they say something about something being a problem." The auditory hallucinations are reported to be limited to "when I'm alone". She does admit that the voices have not been suggesting she do anything to harm herself. Pt denies SI today. Physical Exam Psychiatric Orientation: alert, oriented x 3 and cooperative Apperance: appropriately dressed and appropriately groomed (Recently shaved head) Eye Contact: + fair eye contact (contact divided between this provider and looking straight ahead) Motor Behavior: steady gait and station and no abnormal motor movements Speech: normal rate/rhythm/volume of speech (quiet, heavy accent) Affect: + anxious affect and + flat affect Mood: no depressed mood and no anxious mood "Ok, the same" Thought Process: goal directed thought process and clear/coherent thought process Thought Content: + preoccupation (with auditory hallucinations) Suicidal Thoughts: denies suicidal thoughts Homicidal Thoughts: denies homicidal thoughts Hallucinations: + auditory hallucinations (improving); no visual hallucinations Cognition: recent memory grossly intact, remote memory grossly intact, attention grossly intact and language grossly intact Estimated Intelligence: average estimated intelligence Insight: + impaired insight Judgement: + impaired judgement Vital Signs (Past 24 Hours) Last Vital Signs Temp 36.5 C 10/31/18 06:25 Pulse 76 10/31/18 06:25 Resp 16 10/31/18 06:25 BP 115/74 10/31/18 06:25 Pulse Ox 100 10/26/18 23:05 Results & Data Current Inpatient Medications Current Inpatient Medications: Current Inpatient Medications Acetaminophen (Tylenol) 650 mg PO Q4H PRN PRN Reason: Headache or Minor Fever Stop: 11/25/18 22:51 Al Hydrox/Mg Hydrox/Simethicone (Maalox) 30 ml PO Q4H PRN PRN Reason: GI Upset Stop: 11/25/18 22:51 Bismuth Subsalicylate (Kaopectate) 15 ml PO PRN PRN PRN Reason: Loose Stool Stop: 11/25/18 22:51 Fexofenadine HCl (Liana) 180 mg PO QAM PRN PRN Reason: Congestion Stop: 11/26/18 08:59 Hydroxyzine HCl (Vistaril) 25 mg PO Q4H PRN PRN Reason: Anxiety Stop: 11/25/18 22:51 Hydroxyzine HCl (Vistaril) 50 mg PO HSZ PRN PRN Reason: Insomnia Stop: 11/25/18 22:51 Ibuprofen (Motrin) 600 mg PO Q6H PRN PRN Reason: pain, cramps Stop: 11/27/18 13:29 Lorazepam (Ativan) 1 mg PO TID PRN PRN Reason: Anxiety Stop: 11/26/18 00:22 Magnesium Hydroxide (Milk Of Magnesia) 30 ml PO DAILY PRN PRN Reason: Heartburn Stop: 11/25/18 22:51 Non-Formulary Medication (Non-Formulary Patient's Own Med) 1 ea N/A BIDM MAEVE Stop: 11/04/18 17:44 Last Admin: 10/30/18 17:33 Dose: 1 tab Documented by: Psyllium Hydrophilic Mucilloid (Metamucil) 1 pkt PO QAM PRN PRN Reason: Constipation Stop: 11/26/18 08:59 Risperidone (Risperdal) 1 mg PO BID MAEVE Stop: 11/29/18 20:59 Last Admin: 10/30/18 21:05 Dose: 1 mg Documented by: Risperidone (Risperdal) 0.5 mg PO Q6 PRN PRN Reason: hallucinations Stop: 11/29/18 16:22 Sodium Chloride ([place] Nasal) 1 - 2 sprays NA PRN PRN PRN Reason: Nasal Dryness/Congestion Stop: 11/25/18 22:51 Post Discharge Appointments Primary Care Physician Name Of Family Doctor: [facility], Dr. Narayan Therapist Name of Therapist: Danni berger [facility] (just there yesterday) Wire Bound Box Machine Helper Name of Wire Bound Box Machine Helper: Tamia Contact Information Discharge Discharge Address: [address] [place] [address], [facility], [address], [place] [address] CPT Code CPT Code 82214 (1) Sinusitis Chronicity: acute Recurrence: not specified as recurrent Sinusitis location: unspecified location Qualified Code(s): J01.90 - Acute sinusitis, unspecified
[2018-10-31] MEDS: risperiDONE 1 MG TABLET PO SCH (09:24)
[2018-10-31] MEDS: NON-FORMULARY PATIENT'S OWN MED SCH ×2 (09:25→17:51)
[2018-10-31] MEDS: risperiDONE 2 MG TABLET PO SCH (21:25)
--- NOTE | 2018-11-01 08:55 | Psychiatric Progress Note ---
Date of Service November 01, 2018 Impression / Recommendations Impression Pt reporting difficulty determining if risperidone or olanzapine was more effective for her AH, we discussed need to continue on a single medication, with goal being titration until hallucinations dissipate. Pt was understanding of reasoning given and is agreeable to remaining on risperidone for the time being. She was encouraged to utilize prn risperidone for auditory hallucinations to allow us to better estimate necessary total daily dosing. Pt's affect remains flat and she continues to appear depressed. She is, however, verbalizing desire to have a phone meeting with her mother and move toward discharge planning. She denies safety concerns today, but given ongoing medication titration and patient reporting voices more prominent last evening, should requires additional inpatient psychiatric treatment to limit risk of harm to self. (1) Auditory hallucination: 10/27 - Start Zyprexa 2.5 mg BID R/B/A reviewed and accepted including risk for TD - Monitoring labs (FLP and FBS) tomorrow AM - Reality orientation - Explore support network - Communicate with the university as needed - Coordinate with CAPS - Q 15 min checks for safety 10/28 - Continue current dose of zyprexa - Change prn to zyprexa 2.5 TID prn psychosis - Meeting with roommates when patient able to tolerate 10/29 -Getting olanzapine 2.5 mg x2 doses a day. Consider consolidating to bedtime if continues to be sleepy during the day. -Encourage group attendance and participation. 10/30 - Verbalized desire to switch to risperidone; will schedule 1 mg PO BID with 0.5mg q6h prn hallucinations - Continue to encourage participation in groups - Likely unable to tolerate family meeting at this time 10/31 - Risperidone dosing changed to 0.5mg qAM and 2mg qHS - to target ongoing AH and daytime sedation - Pt verbalizing desire for family meeting, seems appropriate for one to be scheduled 11/01 - Continue current dose of risperidone. Encouraged use of prn availability to better estimate daily dose needed - Schedule family meeting with patient's mother - Involve patient in discharge planning with assistance from outpatient supports (2) Sinusitis: 10/27 - Started a 10 day course of Augmentin 4 days ago for sinus infection. 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 Chief Complaint "I don't know how to compare the two pills". Review of Systems Notes Constitutional: reports fatigue Cardiovascular: denied Respiratory: denied Gastrointestinal: denied Neurological/Musculoskeletal: reports arm and neck stiffness Psychiatric: denies symptoms other than stated above Total of at least 10 systems reviewed, pertinent positives as above and in HPI. Sleep Information Total Hours of Sleep: 7 Sleep Comments: pt on q-15 minute checks Meal Information Percent Meal Consumed - Breakfast: 50 Percent Meal Consumed - Lunch: 80 Percent Meal Consumed - Dinner: 90 Nutrition Comment: Patient threw-up earlier in the shift and declined her lunch. Subjective Subjective Patient was seen & assessed and interval progress reviewed with Nursing. Staff reports the patient continues to appear depressed and flat on the unit. She verbalized desire to schedule a meeting with her mother via phone. Reported so me increased presence of auditory hallucinations last evening. Pt was seen today to assess progress since admission. Pt states she is doing well, but reports concern as she cannot tell if she is benefiting more from olanzapine or risperidone. Pt educated on these medications, and that in most cases we need to see consistency with dosing to know what the result will be. Pt wondered if switching back to olanzapine would be better. She reports feeling the voices were more active last evening, wondering if this is related to the higher dose she received last evening. Pt reports understanding after receiving a through explanation of plan for medications. She is agreeable to remain on risperidone, continuing to titrate as necessary. Encouraged patient to utilize prns of risperidone so we can better estimate the target total daily dose. She verbalized understanding of this concept. Pt does report some stiffness in her arms. Upon physical examination, there is no rigidity or cogwheeling. She denies restlessness. Pt was encouraged to get out of bed and move around the unit, as she has spent most of the past few days in her room. Pt denies SI today, but affect remains flat. Physical Exam Psychiatric Orientation: alert, oriented x 3 and cooperative Apperance: appropriately dressed and appropriately groomed (Recently shaved head) Eye Contact: + fair eye contact (contact divided between this provider and looking straight ahead) Motor Behavior: no abnormal motor movements (observed while laying in bed) Speech: normal rate/rhythm/volume of speech (quiet, heavy accent) Affect: + anxious affect and + flat affect Mood: no depressed mood and no anxious mood "ok" Thought Process: goal directed thought process and clear/coherent thought process Thought Content: + preoccupation (with auditory hallucinations, and medication changes) Suicidal Thoughts: denies suicidal thoughts Homicidal Thoughts: denies homicidal thoughts Hallucinations: + auditory hallucinations (an episode of increase presence last evening); no visual hallucinations Cognition: recent memory grossly intact, remote memory grossly intact, attention grossly intact and language grossly intact Estimated Intelligence: average estimated intelligence Insight: + impaired insight Judgement: + impaired judgement Vital Signs (Past 24 Hours) Last Vital Signs Temp 36.4 C L 11/01/18 06:16 Pulse 87 11/01/18 06:16 Resp 16 11/01/18 06:16 BP 112/80 11/01/18 06:16 Pulse Ox 100 10/26/18 23:05 Results & Data Current Inpatient Medications Current Inpatient Medications: Current Inpatient Medications Acetaminophen (Tylenol) 650 mg PO Q4H PRN PRN Reason: Headache or Minor Fever Stop: 11/25/18 22:51 Al Hydrox/Mg Hydrox/Simethicone (Maalox) 30 ml PO Q4H PRN PRN Reason: GI Upset Stop: 11/25/18 22:51 Bismuth Subsalicylate (Kaopectate) 15 ml PO PRN PRN PRN Reason: Loose Stool Stop: 11/25/18 22:51 Fexofenadine HCl (Liana) 180 mg PO QAM PRN PRN Reason: Congestion Stop: 11/26/18 08:59 Hydroxyzine HCl (Vistaril) 25 mg PO Q4H PRN PRN Reason: Anxiety Stop: 11/25/18 22:51 Hydroxyzine HCl (Vistaril) 50 mg PO HSZ PRN PRN Reason: Insomnia Stop: 11/25/18 22:51 Ibuprofen (Motrin) 600 mg PO Q6H PRN PRN Reason: pain, cramps Stop: 11/27/18 13:29 Lorazepam (Ativan) 1 mg PO TID PRN PRN Reason: Anxiety Stop: 11/26/18 00:22 Magnesium Hydroxide (Milk Of Magnesia) 30 ml PO DAILY PRN PRN Reason: Heartburn Stop: 11/25/18 22:51 Non-Formulary Medication (Non-Formulary Patient's Own Med) 1 ea N/A BIDM MAEVE Stop: 11/04/18 17:44 Last Admin: 10/31/18 17:51 Dose: 1 tab Documented by: Psyllium Hydrophilic Mucilloid (Metamucil) 1 pkt PO QAM PRN PRN Reason: Constipation Stop: 11/26/18 08:59 Risperidone (Risperdal) 0.5 mg PO Q6 PRN PRN Reason: hallucinations Stop: 11/29/18 16:22 Risperidone (Risperdal) 0.5 mg PO QAM MAEVE Stop: 12/01/18 08:59 Risperidone (Risperdal) 2 mg PO HS MAEVE Stop: 11/30/18 21:59 Last Admin: 10/31/18 21:25 Dose: 2 mg Documented by: Sodium Chloride ([place] Nasal) 1 - 2 sprays NA PRN PRN PRN Reason: Nasal Dryness/Congestion Stop: 11/25/18 22:51 Post Discharge Appointments Primary Care Physician Name Of Family Doctor: [facility], Dr. Narayan Therapist Name of Therapist: Danni berger [facility] (just there yesterday) Customs Compliance Analyst Name of Customs Compliance Analyst: Denies Contact Information Discharge Discharge Address: [address] [place] [address], [address], [place] [address] CPT Code CPT Code 87699 (1) Sinusitis Chronicity: acute Recurrence: not specified as recurrent Sinusitis location: unspecified location Qualified Code(s): J01.90 - Acute sinusitis, unspecified
[2018-11-01] MEDS: NON-FORMULARY PATIENT'S OWN MED SCH ×2 (09:13→17:58)
[2018-11-01] MEDS: risperiDONE 0.5 MG TABLET PO SCH (09:13)
--- NOTE | 2018-11-01 11:43 | Communication Note ---
Date of Service: November 01, 2018 I personally met with the patient to assess her progress and response to treatment. Family meeting scheduled yesterday, but asked to postpone it as she was too tired to participate. Her mother (in [place]) was contacted by the social media sr strategy manager, and reported that the patient is usually focused on school, active, and noted she had reported feeling better when they last spoke the day prior. She was updated on the patient's treatment plan. Today, she was seen in her room, where she is still in bed midmorning. She states that she typically sleeps until 11 AM, so is having difficulty getting up earlier here. She continues to hear voices, but they have improved. She expresses confusion about medication, stating she wants to know which medication is "better." She feels safe here in the hospital.
[2018-11-01] MEDS: risperiDONE 2 MG TABLET PO SCH (22:15)
[2018-11-02] MEDS: risperiDONE 0.5 MG TABLET PO SCH (10:21)
[2018-11-02] MEDS: NON-FORMULARY PATIENT'S OWN MED SCH ×2 (10:22→17:35)
--- NOTE | 2018-11-02 12:57 | Psychiatric Progress Note ---
Date of Service November 02, 2018 Impression / Recommendations Impression Consistently tired, but was so before starting these meds. Encouraged to establish better sleep hygiene and structure to day and to start with today to demonstrate that she is prepared to discharge. (1) Auditory hallucination: 10/27 - Start Zyprexa 2.5 mg BID R/B/A reviewed and accepted including risk for TD - Monitoring labs (FLP and FBS) tomorrow AM - Reality orientation - Explore support network - Communicate with the [facility] as needed - Coordinate with [facility] - Q 15 min checks for safety 10/28 - Continue current dose of zyprexa - Change prn to zyprexa 2.5 TID prn psychosis - Meeting with roommates when patient able to tolerate 10/29 -Getting olanzapine 2.5 mg x2 doses a day. Consider consolidating to bedtime if continues to be sleepy during the day. -Encourage group attendance and participation. 10/30 - Verbalized desire to switch to risperidone; will schedule 1 mg PO BID with 0.5mg q6h prn hallucinations - Continue to encourage participation in groups - Likely unable to tolerate family meeting at this time 10/31 - Risperidone dosing changed to 0.5mg qAM and 2mg qHS - to target ongoing AH and daytime sedation - Pt verbalizing desire for family meeting, seems appropriate for one to be scheduled 11/01 - Continue current dose of risperidone. Encouraged use of prn availability to better estimate daily dose needed - Schedule family meeting with patient's mother - Involve patient in discharge planning with assistance from outpatient supports 11/02 - Continue current meds and plan - Encourage good sleepy hygiene and daily structure. (2) Sinusitis: 10/27 - Started a 10 day course of Augmentin 4 days ago for sinus infection. 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 Chief Complaint "I am tired. ". Review of Systems Sleep Information Total Hours of Sleep: 6.5 Sleep Comments: pt on q-15 minute checks Meal Information Percent Meal Consumed - Breakfast: 60 Percent Meal Consumed - Lunch: 70 Percent Meal Consumed - Dinner: 60 Nutrition Comment: pt. required prompting and encouragement to eat bkfst Subjective Subjective Patient was seen & assessed and interval progress reviewed with Treatment Team. The patient is in bed saying she is tired and thinks that its the meds causing it. When asked to differentiate this from her baseline sleep patterns, she says that at home she sometimes sleeps into the afternoon. She was open to encouragement to get out of bed and to consider structured bed and wake times to facilitate improved sleep habits. She reports that the voices are much less, "I can still hear them, but they are far away" and are arguing with one another, but not commanding her. She asks how long she will need to remain in the hospital as she has an ENT follow up on Friday that she would like to keep. She feels that she is ready for discharge and would be capable of doing her school work and caring for herself if discharged, and is looking forward to psychiatric follow up Physical Exam Psychiatric Orientation: alert and cooperative Apperance: appropriately dressed and appropriately groomed Eye Contact: good eye contact Motor Behavior: no abnormal motor movements lying in bed Speech: normal rate/rhythm/volume of speech Affect: + blunted affect Mood: + anxious mood; no depressed mood Thought Process: goal directed thought process Thought Content: reality based without delusions Suicidal Thoughts: denies suicidal thoughts Homicidal Thoughts: denies homicidal thoughts Hallucinations: + auditory hallucinations; no visual hallucinations Cognition: recent memory grossly intact Estimated Intelligence: average estimated intelligence Insight: + limited insight Judgement: + limited judgement Vital Signs (Past 24 Hours) Last Vital Signs Temp 36.8 C 11/02/18 06:49 Pulse 96 H 11/02/18 06:50 Resp 16 11/02/18 06:49 BP 116/73 11/02/18 06:50 Pulse Ox 100 10/26/18 23:05 Results & Data Current Inpatient Medications Current Inpatient Medications: Current Inpatient Medications Acetaminophen (Tylenol) 650 mg PO Q4H PRN PRN Reason: Headache or Minor Fever Stop: 11/25/18 22:51 Al Hydrox/Mg Hydrox/Simethicone (Maalox) 30 ml PO Q4H PRN PRN Reason: GI Upset Stop: 11/25/18 22:51 Bismuth Subsalicylate (Kaopectate) 15 ml PO PRN PRN PRN Reason: Loose Stool Stop: 11/25/18 22:51 Fexofenadine HCl (Liana) 180 mg PO QAM PRN PRN Reason: Congestion Stop: 11/26/18 08:59 Hydroxyzine HCl (Vistaril) 25 mg PO Q4H PRN PRN Reason: Anxiety Stop: 11/25/18 22:51 Hydroxyzine HCl (Vistaril) 50 mg PO HSZ PRN PRN Reason: Insomnia Stop: 11/25/18 22:51 Ibuprofen (Motrin) 600 mg PO Q6H PRN PRN Reason: pain, cramps Stop: 11/27/18 13:29 Lorazepam (Ativan) 1 mg PO TID PRN PRN Reason: Anxiety Stop: 11/26/18 00:22 Magnesium Hydroxide (Milk Of Magnesia) 30 ml PO DAILY PRN PRN Reason: Heartburn Stop: 11/25/18 22:51 Non-Formulary Medication (Non-Formulary Patient's Own Med) 1 ea N/A BIDM [facility] Stop: 11/04/18 17:44 Last Admin: 11/02/18 10:22 Dose: 1 tab Documented by: Psyllium Hydrophilic Mucilloid (Metamucil) 1 pkt PO QAM PRN PRN Reason: Constipation Stop: 11/26/18 08:59 Risperidone (Risperdal) 0.5 mg PO Q6 PRN PRN Reason: hallucinations Stop: 11/29/18 16:22 Risperidone (Risperdal) 0.5 mg PO QAM MAEVE Stop: 12/01/18 08:59 Last Admin: 11/02/18 10:21 Dose: 0.5 mg Documented by: Risperidone (Risperdal) 2 mg PO HS MAEVE Stop: 11/30/18 21:59 Last Admin: 11/01/18 22:15 Dose: 2 mg Documented by: Sodium Chloride ([place] Nasal) 1 - 2 sprays NA PRN PRN PRN Reason: Nasal Dryness/Congestion Stop: 11/25/18 22:51 Post Discharge Appointments Primary Care Physician Name Of Family Doctor: [facility] - Dr Narayan Primary [facility] Date of Appointment with PCP: 11/12/18 Time of Appointment with PCP: 2:20pm Provider Appointment Comment: [address] [place] [address] Psychiatrist Name of Psychiatrist: [facility] Psychiatrist's Psychiatric Appointment Comment: [address] [place] [address] Therapist Name of Therapist: [facility] Therapist's Therapy Appointment Comment: [address], [place] [address] Program Advisor Name of Program Advisor: Student [facility] Phone Number for Program Advisor: [phone] Date of Appointment with Program Advisor: 11/06/18 Time of Appointment with Program Advisor: 8:30am Case Management Appointment Comment: [address] [place] [id number] Specialist Name of Specialist: ENT - Dr Daniels Phone Number for Specialist: [phone] Date of Appointment with Specialist: 11/04/18 Time of Appointment with Specialist: 10:15am Specialty Appointment Comment: [address] [place] [address] Contact Information Discharge Discharge Address: [address] [place] [address], [facility], [address], [place] [address] CPT Code CPT Code 48471 (1) Sinusitis Chronicity: acute Recurrence: not specified as recurrent Sinusitis location: unspecified location Qualified Code(s): J01.90 - Acute sinusitis, unspecified
[2018-11-02] MEDS: risperiDONE 2 MG TABLET PO SCH (21:22)
--- NOTE | 2018-11-03 09:07 | Discharge Summary ---
Date of Service November 03, 2018 History of Present Illness The patient is a 27-year-old female originally from [place] but here studying [employer] at [employer]. She talked with her family About it at the time, they confirmed that they did not hear voices and she was encouraged to see a physician which she did not. She admits that she has been having trouble hearing multiple voices in her head that are usually arguing, shouting "shut up" and using swear words. She first started to hear these voices about 1 year prior to coming to the [facility], believing that it was her neighbors. 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 She was recently hospitalized at the [facility] for voices, took an unknown named medication but did not take it after discharge on October 13 saying that no pre scription was ever sent. She was assigned to follow-up at [facility] on campus and saw Danni yesterday to whom she reported that she has had ongoing problems with voices saying that she should cut off her hair and they will get out of her and to days ago saying to each other that if she committed suicide that may be they would be able to get out. She has been talking with her landlord about this who says that she is "spiritually sensitive" and that is why she is hearing voices. She indicates that the voices speaking Nigerien and some limited Citizen Of [place]. Some of the voices say they are cat or dog spirits and the only time the improve is when she is sleeping. She says that she hears them 24 hours a day at this point unless she is sleeping. Today she says that her mood is okay and denies suicidal thinking but even during the interview was saying that she is hearing voices saying that she should zain me for the things that I am asking. She indicates her sleep and appetite have been undisturbed. She has anxiety when she hears the voices saying that she feels "overwhelmed" and that they are "too noisy". She denies ever having had visual experiences. She denies self-injurious behaviors. She denies discrete episodes of euphoric mood, sleeplessness or pleasure seeking behaviors that would be congruent with bipolar disorder. Physical Exam Psychiatric Orientation: alert and cooperative Apperance: appropriately dressed and appropriately groomed Eye Contact: good eye contact Motor Behavior: steady gait and station and no abnormal motor movements Speech: normal rate/rhythm/volume of speech (quiet, with accent) Affect: + blunted affect Mood: no depressed mood and no anxious mood Thought Process: goal directed thought process Thought Content: reality based without delusions Suicidal Thoughts: denies suicidal thoughts Homicidal Thoughts: denies homicidal thoughts Hallucinations: + auditory hallucinations (but more distant and less frequent); no visual hallucinations Cognition: recent memory grossly intact, remote memory grossly intact, attention grossly intact and language grossly intact Estimated Intelligence: average estimated intelligence Insight: + limited insight Judgement: + fair judgement Vital Signs (Past 24 Hours) Last Vital Signs Temp 36.8 C 11/03/18 06:52 Pulse 88 11/03/18 06:53 Resp 16 11/03/18 06:52 BP 113/77 11/03/18 06:53 Pulse Ox 100 10/26/18 23:05 Principal Diagnosis Psychosis unspecified Psychiatric Data The patient has been on her unit for 8 days. She was admitted voluntarily with psychosis, specifically having auditory command hallucinations. She had recently been in the [facility] but had not continued medications after discharge and so was restarted initially on Zyprexa. For complete admission information I refer you to the attached history and physical. Initially the Zyprexa seemed to work some but was switched to Risperdal for better efficacy and fewer side effects. The dosage was increased to 0 point 5 in the morning and 2 mg at bedtime and this seemed to have a significant impact on hallucinations. She reported that they were less frequent, more distant. She consistently complained of sedation however this was something she struggled with prior to admission as well, at times saying she did not get out of bed until afternoon. She was at times a reluctant participant in groups choosing to stay in bed rather than attend. She was able to structure her time better when she had frequent prompts from staff but otherwise would retreat to her room. She was encouraged to set standard sleep and wake times for better sleep hygiene. Other than sedation, she denied any other side effects to medications. She was able to have a phone meeting with her mother in [place] and the patient felt that this was helpful and that her mother was supportive. 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 She consistently denied visual hallucinations throughout her stay. There was concern that this could represent a primary thought disorder but will need to be followed longitudinally. Risk factors were mitigated through the use of medications, reality testing, aftercare planning, safety planning, group and individual counseling. Day of Discharge Assessment Today the patient is requesting discharge. She feels significantly improved and today says she did not have any voices upon awakening but now is having them but they are much more distant and she believes that they will not interfere with her functionality. She denies suicidal ideation, homicidal ideation and visual experiences. Today she is casually and appropriately dressed although she has just gotten out of bed. Gait and station are within normal limits. Eye contact is good. Affect is blunted. She denies feeling depressed or anxious today. Speech is of normal rate volume and tone, heavy accent. Thoughts are organized, goal-directed in response to questions, and without delusions. Recent and remote memory are intact per conversation. Intelligence is estimated to be average. Insight and judgment are improved over admission. 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 Risk Factors Assessment Male: No : No Do You Have Access To A Gun?: No Health Problems: No Mental Health Diagnoses: Yes Substance Use Disorders: No Previous Attempt: No Family History of Suicide: No Previous Psychiatric Hospitalization: Yes Hopelessness: No Smoker: No Protective Factors Assessment : No Responsible for Young Children: No Employed: No Tobacco Cessation at Discharge Tobacco Cessation Medication Prescribed at Discharge: Not Applicable/Non-Smoker Total Time Total Time Spent: Greater Than 30 Minutes Total Time Includes: Examination of the patient, Discharge Planning, Medication Reconciliation and Communication with other providers Discharge Data Lab Results 10/26/18 10/26/18 10/26/18 17:36 17:36 17:44 WBC 6.01 RBC 3.98 L Hgb 12.6 Hct 35.5 L MCV 89.2 MCH 31.7 MCHC 35.5 RDW Std Deviation 38.4 RDW Coeff of Cedrick 11.8 Plt Count 285 MPV 9.3 Immature Gran % (Auto) 0.2 Neut % (Auto) 62.0 Lymph % (Auto) 28.0 Gray % (Auto) 6.5 Eos % (Auto) 3.0 Baso % (Auto) 0.3 Immature Gran # (Auto) 0.01 Neut # (Auto) 3.73 Lymph # (Auto) 1.68 Gray # (Auto) 0.39 Eos # (Auto) 0.18 Baso # (Auto) 0.02 Sodium Potassium Chloride Carbon Dioxide Anion Gap BUN Creatinine Est Cr Clr Drug Dosing Est GFR ( Amer) Est GFR (Non-Af Amer) BUN/Creatinine Ratio Glucose Fasting Glucose Calcium Total Bilirubin AST ALT Alkaline Phosphatase Total Protein Albumin Globulin Albumin/Globulin Ratio Triglycerides Cholesterol LDL Cholesterol, Calc VLDL Cholesterol, Calc HDL Cholesterol Cholesterol/HDL Ratio TSH HCG, Qual Urine Color Yellow Urine Appearance Cloudy H Urine pH 5.0 Ur Specific [place] 1.025 Urine Protein Negative Urine Glucose (UA) Negative Urine Ketones Negative Urine Blood Negative Urine Nitrite Negative Urine Bilirubin Negative Urine Urobilinogen Negative Ur Leukocyte Esterase 2+ H Urine WBC (Auto) >30 H Urine RBC (Auto) 5-10 H U Hyaline Cast (Auto) 0 U Epithel Cells (Auto) >30 H Urine Bacteria (Auto) Negative Ur Renal Epithelial Cell Not Reportable Salicylates Urine Opiates Screen Neg Ur Methadone, Qual Neg Acetaminophen Urine Barbiturates Neg Ur Phencyclidine (PCP) Neg U Amphetamin/Meth Scrn Neg MDMA (Ecstasy) Screen Neg U Benzodiazepines Scrn Neg Ur Cocaine Metabolite Neg U Marijuana (THC) Screen Neg Ethyl Alcohol mg/dL 10/26/18 10/26/18 10/26/18 17:44 17:44 17:44 WBC RBC Hgb Hct MCV MCH MCHC RDW Std Deviation RDW Coeff of Cedrick Plt Count MPV Immature Gran % (Auto) Neut % (Auto) Lymph % (Auto) Gray % (Auto) Eos % (Auto) Baso % (Auto) Immature Gran # (Auto) Neut # (Auto) Lymph # (Auto) Gray # (Auto) Eos # (Auto) Baso # (Auto) Sodium 139 Potassium 3.7 Chloride 108 H Carbon Dioxide 24 Anion Gap 7.0 BUN 10 Creatinine 0.60 Est Cr Clr Drug Dosing 101.2 Est GFR ( Amer) 144.8 Est GFR (Non-Af Amer) 124.9 BUN/Creatinine Ratio 15.9 Glucose 88 Fasting Glucose Calcium 8.7 Total Bilirubin 0.6 AST 12 L ALT 16 Alkaline Phosphatase 39 L Total Protein 7.4 Albumin 3.9 Globulin 3.5 Albumin/Globulin Ratio 1.1 Triglycerides Cholesterol LDL Cholesterol, Calc VLDL Cholesterol, Calc HDL Cholesterol Cholesterol/HDL Ratio TSH 2.310 HCG, Qual Urine Color Urine Appearance Urine pH Ur Specific [place] Urine Protein Urine Glucose (UA) Urine Ketones Urine Blood Urine Nitrite Urine Bilirubin Urine Urobilinogen Ur Leukocyte Esterase Urine WBC (Auto) Urine RBC (Auto) U Hyaline Cast (Auto) U Epithel Cells (Auto) Urine Bacteria (Auto) Ur Renal Epithelial Cell Salicylates < 1.7 L Urine Opiates Screen Ur Methadone, Qual Acetaminophen < 2 L Urine Barbiturates Ur Phencyclidine (PCP) U Amphetamin/Meth Scrn MDMA (Ecstasy) Screen U Benzodiazepines Scrn Ur Cocaine Metabolite U Marijuana (THC) Screen Ethyl Alcohol mg/dL < 3.0 10/26/18 10/28/18 17:44 07:00 WBC RBC Hgb Hct MCV MCH MCHC RDW Std Deviation RDW Coeff of Cedrick Plt Count MPV Immature Gran % (Auto) Neut % (Auto) Lymph % (Auto) Gray % (Auto) Eos % (Auto) Baso % (Auto) Immature Gran # (Auto) Neut # (Auto) Lymph # (Auto) Gray # (Auto) Eos # (Auto) Baso # (Auto) Sodium Potassium Chloride Carbon Dioxide Anion Gap BUN Creatinine Est Cr Clr Drug Dosing Est GFR ( Amer) Est GFR (Non-Af Amer) BUN/Creatinine Ratio Glucose Fasting Glucose 91 Calcium Total Bilirubin AST ALT Alkaline Phosphatase Total Protein Albumin Globulin Albumin/Globulin Ratio Triglycerides 40 Cholesterol 154 LDL Cholesterol, Calc 80 VLDL Cholesterol, Calc 8 HDL Cholesterol 66 Cholesterol/HDL Ratio 2 TSH HCG, Qual Negative Urine Color Urine Appearance Urine pH Ur Specific [place] Urine Protein Urine Glucose (UA) Urine Ketones Urine Blood Urine Nitrite Urine Bilirubin Urine Urobilinogen Ur Leukocyte Esterase Urine WBC (Auto) Urine RBC (Auto) U Hyaline Cast (Auto) U Epithel Cells (Auto) Urine Bacteria (Auto) Ur Renal Epithelial Cell Salicylates Urine Opiates Screen Ur Methadone, Qual Acetaminophen Urine Barbiturates Ur Phencyclidine (PCP) U Amphetamin/Meth Scrn MDMA (Ecstasy) Screen U Benzodiazepines Scrn Ur Cocaine Metabolite U Marijuana (THC) Screen Ethyl Alcohol mg/dL Hospital Course (1) Auditory hallucination: 10/27 - Start Zyprexa 2.5 mg BID R/B/A reviewed and accepted including risk for TD - Monitoring labs (FLP and FBS) tomorrow AM - Reality orientation - Explore support network - Communicate with the university as needed - Coordinate with [facility] - Q 15 min checks for safety 10/28 - Continue current dose of zyprexa - Change prn to zyprexa 2.5 TID prn psychosis - Meeting with roommates when patient able to tolerate 10/29 -Getting olanzapine 2.5 mg x2 doses a day. Consider consolidating to bedtime if continues to be sleepy during the day. -Encourage group attendance and participation. 10/30 - Verbalized desire to switch to risperidone; will schedule 1 mg PO BID with 0.5mg q6h prn hallucinations - Continue to encourage participation in groups - Likely unable to tolerate family meeting at this time 10/31 - Risperidone dosing changed to 0.5mg qAM and 2mg qHS - to target ongoing AH and daytime sedation - Pt verbalizing desire for family meeting, seems appropriate for one to be scheduled 11/01 - Continue current dose of risperidone. Encouraged use of prn availability to better estimate daily dose needed - Schedule family meeting with patient's mother - Involve patient in discharge planning with assistance from outpatient supports 11/02 - Continue current meds and plan - Encourage good sleepy hygiene and daily structure. (2) Sinusitis: 10/27 - Started a 10 day course of Augmentin 4 days ago for sinus infection. Will continue Post Discharge Appointments Primary Care Physician Name Of Family Doctor: [facility] - Dr Narayan Primary Care Date of Appointment with PCP: 11/12/18 Time of Appointment with PCP: 2:20pm Provider Appointment Comment: [address] [place] [id number] Psychiatrist Name of Psychiatrist: [facility] - Dr Nichols Psychiatrist's Date of Appointment with Psychiatrist: 11/16/18 Time of Appointment with Psychiatrist: 12:30pm Psychiatric Appointment Comment: [facility] [address] [facility], [place] [address] Therapist Name of Therapist: [facility] - Sally Campbell Therapist's Date of Therapist Appointment: 11/24/18 Time of Therapist Appointment: 3pm Therapy Appointment Comment: [address] [facility] [address], [place] [address] Rural Carrier Name of Rural Carrier: [facility] [place] Phone Number for Rural Carrier: [phone] Date of Appointment with Rural Carrier: 11/06/18 Time of Appointment with Rural Carrier: 8:30am Case Management Appointment Comment: [address] [place] [address] Specialist Name of Specialist: ENT - Dr Daniels Phone Number for Specialist: [phone] Date of Appointment with Specialist: 11/04/18 Time of Appointment with Specialist: 10:15am Specialty Appointment Comment: [address], [place] [address] Smoking Cessation Counseling Tobacco Cessation Medication Prescribed at Discharge: Not Applicable/Non-Smoker Other #1: Name of Aftercare Appointment: LEO Stuart Phone Number of Aftercare Appointment: [phone] Date of Aftercare Appointment: 11/09/18 Time of Aftercare Appointment: 4pm Aftercare Appointment Comment: [facility], [address], [place], [place] Contact Information Discharge Discharge Address: [address] [place] [address], [facility], [address], [place] [address] Discharge Plan Discharge Items Patient Disposition: Home - Self-Care Reason For Visit: PSYCHOSIS NOS Discharge Diagnosis: Psychosis Discharge Goals: Decrease discomfort, Improve function and Learn about illness Activity: Resume your previous activity Non-emergency contact: Psychiatrist and Therapist Call non-emergency contact if: you have any medication questions and your symptoms worsen Follow-up/Referrals: [place] [Primary Care Provider] - Diet: Regular Addtl Provider Instructions: SPECIAL CARE INSTRUCTIONS: 1. Follow through with your scheduled aftercare appointments. If unable to keep an appointment, please call to reschedule. 2. Take your medication only as prescribed. Medication should not be changed or stopped without the approval of your doctor. In the event of worsening symptoms or concerns about side effects, contact your doctor immediately. 3. Utilize new healthy coping skills, anger management skills, and stress management skills learned during your hospitalization. Journal feelings and process them with a support person. Identify stressors or situations that may result in relapse, deterioration or inappropriate behaviors and develop a plan to deal with those issues. 4. If your coping skills are ineffective and you are in crisis, contact your outpatient providers for direction. If unable to reach your providers, please call the CAN HELP LINE AT or go to the closest Emergency Room. 5. Avoid alcohol and un-prescribed drugs. 6. You have been provided with the Mental Health Advance Directives Pamphlet for your review. AFTERCARE APPOINTMENTS: * Please call your insurance company prior to your scheduled appointment to confirm your aftercare providers are covered. Take your insurance information to your appointments. WHO TO CALL AND WHEN: Medical Emergencies: For questions or emergencies related to your hospital stay, please contact the Inpatient Behavioral Health Unit at [phone]. A beverage host is on-call 03/03 for the Behavioral Health Unit for emergencies At any time you feel your situation is an emergency, you may also call 911 immediately. Your Doctors Instructions noted above were prepared by provider ANTONELLA Parrish. Prescriptions: New risperidone 2 mg Tablet 2 mg PO HS Qty: 30 RF: 0 risperidone 0.5 mg Tablet 0.5 mg PO QAM Qty: 30 RF: 0 Continued fexofenadine [Liana Allergy] 180 mg Tablet 180 mg PO DAILY PRN (Reason: Congestion) RF: 0 psyllium husk [Metamucil] 0.4 gram Capsule 0.4 g PO DAILY PRN (Reason: Constipation) RF: 0 Discontinued amoxicillin-pot clavulanate [Augmentin] 875-125 mg tablet 1 tab PO BID Qty: 20 RF: 0 Stand-Alone Forms: [facility] Discharge Orders: Discharge Order (Routine); Ordered 11/03/18 Ordered By: Reema Mckenzie Admission Data Admit Date/Time: 10/26/18 22:52 Attending Provider: Esperanza Nichols Admit Provider: Logan Luz I Primary Care Provider: [facility] Service: Psychiatry Other Interventions: PSY Interdisciplinary Discharge Planning Last Done: 11/02/18 15:44 Pending Studies at Discharge: No
[2018-11-03] MEDS: NON-FORMULARY PATIENT'S OWN MED SCH (09:29)
[2018-11-03] MEDS: risperiDONE 0.5 MG TABLET PO SCH (09:29)
== END 2018-11-03 13:22 | disposition home or self-care (01) | DRG 880 ==
LOC: ED 17:21 → 3S 22:52